=== PATIENT | male | born 1975 | race African-American/Black ===

== ENCOUNTER 2022-04-02 20:28 | Emergency (ER) | payer OTHER ==
[~2022-04-02] VITALS: Ht 175.3 cm; Wt 99.5 kg
[2022-04-03] MEDS ORDERED: CYCL5TAB PO (00:01)
[2022-04-03] MEDS ORDERED: BO1 TP (00:01)
[2022-04-03] MEDS ORDERED: NAPR500T7 PO (00:01)
[2022-04-03 00:24] VITALS: BP 133/77
== END 2022-04-03 00:26 | disposition home or self-care (01) ==
LOC: ER 20:28
DX: M25.511 Pain in right shoulder (principal); M25.551 Pain in right hip; M54.9 Dorsalgia, unspecified; S30.810A Abrasion of lower back and pelvis, initial encounter; S70.211A Abrasion, right hip, initial encounter; S40.211A Abrasion of right shoulder, initial encounter; V03.90XA Pedestrian on foot injured in collision with car, pick-up truck or van, unspecified whether traffic or nontraffic accident, initial encounter; Y93.89 Activity, other specified; Y92.410 Unspecified street and highway as the place of occurrence of the external cause
CPT/HCPCS: 72100; 73030; 73502; 99284